=== PATIENT | male | born 1945 | race Caucasian/White ===

== ENCOUNTER 2016-09-15 23:06 | Emergency (ER) | payer MEDICARE, OTHER | END 2016-09-15 23:54 | disposition home or self-care (01) | LOC: ER1 23:06 | DX: T23.252A Burn of second degree of left palm, initial encounter (principal); T31.0 Burns involving less than 10% of body surface; F17.200 Nicotine dependence, unspecified, uncomplicated; X08.8XXA Exposure to other specified smoke, fire and flames, initial encounter; Y92.009 Unspecified place in unspecified non-institutional (private) residence as the place of occurrence of the external cause | CPT/HCPCS: 99283 ==

== ENCOUNTER 2016-10-12 19:58 | Emergency (ER) | payer OTHER, MEDICARE | END 2016-10-12 21:10 | disposition left against medical advice (07) | LOC: ER1 19:58 | DX: Z53.21 Procedure and treatment not carried out due to patient leaving prior to being seen by health care provider (principal) | CPT/HCPCS: 93005 ==

== ENCOUNTER 2020-07-28 12:57 | Emergency (ER) | payer MEDICARE, OTHER ==
[~2020-07-28 12:57] MED LIST: ALPRAZOLAM0.5 MG PO; AMOX TR-K CLV1 EAC4 PO; ASPIRIN 325MG325 MG PO; ASPIRIN EC81 MG PO; ATORVASTATIN CA20 MG PO; CEFUROXIME250 MG PO; CLOPIDOGREL75 MG PO; COMBIVENT RESPIM4 GM INH; COZAAR 25MG TAB25 MG PO; EFFEXOR XR37.5 MG PO; GABAPENTIN300 MG PO; GLUCOPHAGE 500500 MG PO; GLUCOPHAGE500 MG PO; HUMALOG 10100 UNITS/ SC; JANUVIA100 MG PO; LIDOCAINE PAIN1 EACH TOP; LIPITOR80 MG PO; MUCINEX600 MG PO; NEURONTIN800 MG PO; NORVASC 5 MG TAB5 MG PO; PAXIL10 MG PO; PERCOCET 10-321 EACH PO; PERCOCET 5/325 T1 EA PO; PYRIDIUM PO; SENNA-S 8.6-501 EACH PO; VENLAFAXINE H37.5 M2 PO; ZESTRIL40 MG PO
== END 2020-07-28 13:10 | disposition left against medical advice (07) ==
LOC: ER1 12:57
DX: Z53.21 Procedure and treatment not carried out due to patient leaving prior to being seen by health care provider (principal)

== ENCOUNTER 2020-07-31 18:29 | Emergency (ER) | payer MEDICARE, OTHER ==
[2020-07-31 19:41] LABS: HEMOGLOBIN 13.7 gm/dl (14.0-17.5); RED BLOOD COUNT 4.15 M/UL (4.20-5.50); WHITE BLOOD COUNT 7.9 K/UL (4.5-11.0)
[2020-07-31 20:31] LABS: BUN/CREATININE RATIO 25 (0-10)
== END 2020-07-31 22:23 | disposition home or self-care (01) ==
LOC: ER1 18:29
PROVIDERS: Preventive Medicine Occupational Medicine
DX: R07.89 Other chest pain (principal); I25.10 Atherosclerotic heart disease of native coronary artery without angina pectoris; E11.9 Type 2 diabetes mellitus without complications; F17.210 Nicotine dependence, cigarettes, uncomplicated; Z20.822 Contact with and (suspected) exposure to COVID-19; Z79.4 Long term (current) use of insulin; Z86.73 Personal history of transient ischemic attack (TIA), and cerebral infarction without residual deficits; Z95.1 Presence of aortocoronary bypass graft
CPT/HCPCS: 0240U; 36415; 70450; 71045; 80053; 82550; 82553; 83690; 83874; 83880; 84484; 85025; 93005; 99285